=== PATIENT | female | born 1930 | race Caucasian/White ===

== ENCOUNTER 2018-06-25 12:33 | Observation (INO) ==
--- NOTE | 2018-06-25 13:13 | Emergency Department Note ---
Disposition Clinical Impression: Atrial fibrillation Qualifiers: Atrial fibrillation type: paroxysmal Qualified Code(s): I48.0 - Paroxysmal atrial fibrillation Disposition: Admitted As Inpatient Condition: Good Arrhythmia/Palpitations HPI - General Chief Complaint: ED Arrhythmia/Palpitations Stated Complaint: irregular heart rate, a fib Source: patient Mode of arrival: private vehicle Limitations: no limitations Nursing Notes Reviewed: Yes Vital Signs Reviewed: Yes - History of Present Illness HPI Narrative: Patient presents to the ED complaining of some chest discomfort and palpitations. She describes a mild pressure on the left side of her chest as well as feeling like her heart was both pounding and racing. Her heart rate was checked at home by her caregiver and was ranging from the 120s to 140s prior to coming to the ED. Patient has a known history of A. fib that is paroxysmal. She was last admitted for A. fib approximately a year ago. She wears oxygen at home at 4 L. She has no other cardiac history of CAD or [place]. No history of any thyroid problems. She has received all of her routine medications today. She sees cardiology at [place]. She is on metoprolol for her heart rate and amlodipine for her blood pressure. No other antiarrhythmics. No recent change in medications. - Related Data Home Medications Medication Instructions Recorded Confirmed Aspirin [Adult Low Dose Aspirin EC] 81 mg PO DAILY 01/14/16 06/25/18 Calcium Carbonate/Vitamin D3 1 tab PO BID 01/14/16 06/25/18 [Calcium 500 + D Tablet] Cholecalciferol (Vitamin D3) 1,000 unit PO DAILY 01/14/16 06/25/18 [Vitamin D] Galantamine HBr [Razadyne ER] 24 mg PO DAILY 01/14/16 06/25/18 Krill/Om-3/Dha/Epa/Phospho/Ast 2 cap PO DAILY 01/14/16 06/25/18 [Krill Oil 1,000 mg Softgel] Metoprolol [Lopressor] 25 mg PO BID 01/14/16 06/25/18 Multivitamin [Multi-Day Vitamins] 1 tab PO DAILY 01/14/16 06/25/18 Tiotropium [Spiriva] 1 cap IH DAILY 01/14/16 06/25/18 Vitamin E Acid Succinate [Vitamin 200 unit PO DAILY 01/14/16 06/25/18 E] amLODIPine [Norvasc] 5 mg PO DAILY 01/14/16 06/25/18 Budesonide [Pulmicort] 0.5 mg IH BID 10/04/16 06/25/18 Ipratropium/Albuterol Neb [Duoneb] 3 ml IH Q6HR PRN 12/18/16 06/25/18 Oxygen 3 l .ROUTE AD 12/18/16 06/25/18 Potassium Chloride [Klor-Con 10] 10 meq PO DAILY 12/18/16 06/25/18 Arformoterol Tartrate [Brovana] 15 mcg IH 01/08/17 01/08/17 Previous Rx's Medication Instructions Recorded Furosemide [Lasix] 20 mg PO DAILY #14 tablet 11/12/16 Meloxicam 7.5 mg PO DAILY #7 tablet 06/05/17 Tramadol HCl [Ultram] 50 mg PO QID PRN #14 tab 06/05/17 Allergies Allergy/AdvReac Type Severity Reaction Status Date / Time No Known Allergies Allergy Verified 06/25/18 12:34 Constitutional: Denies: fever, chills, weakness, weight change Eyes: Denies: eye pain, eye discharge, vision change ENT ED: Denies: ear pain, throat pain, dental pain, hearing loss, epistaxis, congestion, dysphagia Cardiovascular: Reports: as per HPI, chest pain, palpitations, dyspnea on exertion. Denies: edema, syncope Respiratory: Denies: cough, dyspnea, wheezes, hemoptysis, stridor Gastrointestinal: Denies: abdominal pain, nausea, vomiting, diarrhea, constipation, hematemesis, melena, hematochezia Genitourinary: Denies: dysuria, frequency, hematuria, discharge Musculoskeletal: Denies: back pain, neck pain, arthralgia, myalgia Integumentary: Denies: rash, abrasion, lesions Neurological: Denies: headache, weakness, numbness, paresthesias, confusion, abnormal gait, vertigo Psychiatric: Denies: anxiety, depression, suicidal thoughts, homicidal thoughts , auditory hallucinations, visual hallucinations Endocrine: Denies: fatigue Hematological/Lymphatic: Denies: easy bleeding, easy bruising Allergic/Immunologic: Denies: facial swelling, urticaria Past Medical History - Past Medical History Medical history: Reports: arthritis, COPD, other Surgical history: Reports: appendectomy, cholecystectomy, hysterectomy, other Psychiatric history: Reports: no psych history - Social History Smoking Status: Former smoker Smokeless Tobacco Status: No Alcohol use: Reports: none Drug use: Reports: none Physical Exam - General Limitations: no limitations General appearance: alert, in no apparent distress - Head Head exam: atraumatic - Eye Eye exam: Present: normal appearance, PERRL, EOMI - ENT ENT exam: normal exam, normal oropharynx, mucous membranes moist - Neck Neck exam: Present: normal inspection, full ROM, trachea midline - Chest Chest inspection: Present: normal inspection, symmetric chest wall rise - Respiratory Respiratory exam: Present: normal lung sounds bilaterally - Cardiovascular Cardiovascular exam: Present: irregular rhythm, normal heart sounds - Abdominal Exam Abdominal exam: Present: soft, Non-Tender. Absent: tenderness, distention, guarding, rebound, rigidity - Extremities Exam Extremities exam: Present: normal inspection, full ROM, pedal edema (trace). Absent: tenderness - Back Exam Back exam: Present: normal inspection, full ROM. Absent: tenderness - Neurological Exam Neurological exam: Present: alert, oriented X3 - Psychiatric Psychiatric exam: Present: normal affect, normal mood - Skin Skin exam: Present: warm, dry, intact, normal color Course Course Narrative: Patient presents to the ED with complaint of palpitations and some chest discomfort. On arrival EKG shows A. fib with RVR with heart rate in the upper 90s to low 100s. Blood pressure is on the lower side of normal. Patient appears clinically dry. Will give fluid bolus. If heart rate remains elevated and in A. fib we will consider antiarrhythmics. Will check laboratory studies as well. - Reevaluation(s) Reevaluation #1: Laboratory studies including TSH and troponin are normal. Blood pressure improved with IV fluids and heart rate decreased slightly but remains above 100. Will continue gentle IV fluids and try dose of Cardizem. Reevaluation #2: Height has improved with Cardizem and lingers around the 100 josiah. Discussed with patient, caregiver and family that are now at bedside given the slowing of patient's rate with normal workup she can be discharged home with close outpatient follow-up with her hydraulic rockbreaker operator. Her son expressed wariness about her going home given that she lives alone and does not have continuous around- the-clock care. He and the caregiver are discussing home arrangements further at this time. Reevaluation #3: Patient's baseline heart rate remains right at 100 with occasional increase into the low 100s. Patient's son is very concerned about her potentially being discharged home with him being responsible for monitoring her overnight and scheduling follow-up. Discussed the option of having the patient admitted overnight for continued monitoring, hydration and additional medications as needed if heart rate increases. Patient's son wishes to discuss the situation further with other family members as he is unsure whether he is more comfortable with her being admitted or discharged and also expresses concern about whether patient's hospital stay will be covered by insurance. Additional Reevaluation(s): After numerous conversations with the patient's caregiver and son he is more comfortable with the patient being admitted to be continued to be monitored. Patient's heart rate has began to creep back up into the low 100s on a more persistent basis despite continued IV fluids. Will contact the hospitalist. Patient was accepted by Dr. Black. Heart rate has now persistently remained in the low 100s. Will start a low dose Cardizem drip. Vital Signs Temperature 97.8 F 06/25/18 12:36 Pulse Rate 97 06/25/18 12:36 Respiratory Rate 18 06/25/18 12:36 Blood Pressure 107/65 06/25/18 12:36 O2 Sat by Pulse Oximetry 98 06/25/18 12:36 Temperature 97.6 F 06/26/18 04:21 Pulse Rate 109 06/26/18 04:21 Respiratory Rate 17 06/26/18 04:21 Blood Pressure 109/70 06/26/18 04:21 O2 Sat by Pulse Oximetry 90 06/26/18 04:21 Oxygen Delivery Oxygen Delivery Nasal Cannula Arrhythmia/Palpitations - Differential Diagnosis Differential Diagnosis: Likely: palpitations, artial arrhythmia, metabolic/ electrolyte disturbance - Medical Records Medical records reviewed: Yes I reviewed the patient's medical records. - Lab Data Lab results reviewed: Yes I reviewed the patient's lab results. Result diagrams: 06/25/18 13:37 06/25/18 13:37 Lab Results 06/25/18 06/25/18 06/25/18 Range/Units 13:37 13:37 13:37 WBC 5.9 (4.3-11.1) K/mcL RBC 3.86 (3.82-4.97) M/mcL Hgb 12.2 (11.5-15.4) g/dL Hct 37.7 (35.3-44.9) % MCV 97.7 (83.0-100.0) fL MCH 31.6 (28.0-33.3) pg MCHC 32.4 (31.6-35.5) g/dL RDW 13.8 (11.5-14.5) % Plt Count 191 (140-400) K/mcL MPV 10.0 (9.4-12.4) fL Immature Gran % 0.5 (0-4) % Seg Neutrophils % 74.4 % Lymphocytes % 5.6 % Monocytes % 14.9 % Eosinophils % 4.1 % Basophils % 0.5 % Neutrophils # 4.4 (1.6-8.9) K/mcL Lymphocytes # 0.3 L (0.6-4.6) K/mcL Monocytes # 0.9 (0.0-1.3) K/mcL Eosinophils # 0.2 (0.0-0.6) K/mcL Basophils # 0.0 (0.0-0.2) K/mcL PT 11.1 (9.4-12.1) Seconds INR 1.0 APTT 29.5 (26.0-36.0) Seconds Sodium 136 (136-145) mEq/L Potassium 4.8 (3.5-5.1) mEq/L Chloride 103 (98-107) mEq/L Carbon Dioxide 29 (23-29) mEq/L BUN 22 (8-23) mg/dL Creatinine 0.72 (0.60-1.20) mg/dL Est GFR ( Amer) > 60 (> 60) Est GFR (Non-Af Amer) > 60 (> 60) BUN/Creatinine Ratio 31 H (6-26) Glucose 84 (70-105) mg/dL Calculated Osmolality 285 (280-300) Calcium 10.0 (8.6-10.3) mg/dL Troponin I < 0.03 (< 0.04) ng/mL TSH 0.705 (0.340-5.600) mcIU/mL - Radiology Data Radiology results reviewed: Yes I reviewed the patient's radiology results. ITS Impressions Chest X-Ray 06/25/18 13:14 IMPRESSION: 1. Mild reticular opacities in the left lung which may represent atypical infection versus asymmetric edema. 2. COPD. 3. Prominence of the right hilar structures is likely related to patient rotation. D/ / 06/25/2018 14:10:29 Esthela Mccullough MD / Sade Ayala Interpreting Provider: Esthela Mccullough MD - EKG Data EKG attestation: Yes I reviewed and interpreted this EKG. Rate: tachycardia Rhythm: A.Fib (rate of 122) [place]/QRS: normal Interpretation: other (A-fib with RVR)
[2018-06-25] MEDS ORDERED: 0.9 % Sodium Chloride 500 ML IVC ONE (13:15)
[2018-06-25 13:50] LABS: Basophils % 0.5 %; Eosinophils # 0.2 K/mcL (0.0-0.6); Eosinophils % 4.1 %; Hematocrit 37.7 % (35.3-44.9); Hemoglobin 12.2 g/dL (11.5-15.4); Immature Granulocytes % 0.5 % (0-4); Lymphocytes # 0.3 K/mcL (0.6-4.6); Lymphocytes % 5.6 %; Mean Corpuscular HGB Conc 32.4 g/dL (31.6-35.5); Mean Corpuscular Hemoglobin 31.6 pg (28.0-33.3); Mean Corpuscular Volume 97.7 fL (83.0-100.0); Monocytes # 0.9 K/mcL (0.0-1.3); Monocytes % 14.9 %; Neutrophils # 4.4 K/mcL (1.6-8.9); Platelet Count 191 K/mcL (140-400); Red Blood Count 3.86 M/mcL (3.82-4.97); Red Cell Distribution Width 13.8 % (11.5-14.5); Segmented Neutrophils % 74.4 %
[2018-06-25 13:59] LABS: Prothrombin Time 11.1 Seconds (9.4-12.1)
[2018-06-25 14:02] LABS: Activated Partial Thrombo Time 29.5 Seconds (26.0-36.0)
[2018-06-25 14:06] LABS: BUN/Creatinine Ratio 31 (6-26); Blood Urea Nitrogen 22 mg/dL (8-23); Carbon Dioxide 29 mEq/L (23-29); Chloride 103 mEq/L (98-107); Glucose 84 mg/dL (70-105); Osmolality,Calculated 285 (280-300); Potassium 4.8 mEq/L (3.5-5.1); Sodium 136 mEq/L (136-145); eGFR For Non-African Americans > 60 (> 60)
[2018-06-25 14:10] LABS: Troponin I < 0.03 ng/mL (< 0.04)
[2018-06-25 14:24] LABS: Thyroid Stimulating Hormone 0.705 mcIU/mL (0.340-5.600)
[2018-06-25] MEDS ORDERED: 0.9 % Sodium Chloride 1,000 ML IVC SCH ×2 (17:00→21:04)
[2018-06-25] MEDS ORDERED: Naloxone 0.4 MG/ML INJ IVP PRN ×2 (18:12→21:04)
[2018-06-25] MEDS ORDERED: NON-FORMULARY MEDICATION 1 EACH EACH (Oxygen [Oxygen] 3 L) SCH (21:04)
[2018-06-25] MEDS ORDERED: traMADol 50 MG TABLET PO PRN (21:04)
[2018-06-25] MEDS ORDERED: Ipratropium/Albuterol Neb 3 ML IH PRN (22:00)
[2018-06-25] MEDS: Albuterol 2.5 MG/3 ML NEBULIZER IH SCH (23:10)
[2018-06-25] MEDS: Budesonide Neb 0.5 MG/2 ML IH SCH (23:20)
[2018-06-26] MEDS ORDERED: ALPRAZolam 0.5 MG TABLET PO PRN (02:48)
[2018-06-26] MEDS ORDERED: Tiotropium 18 MCG inhalation IH SCH (09:00)
[2018-06-26] MEDS ORDERED: GALANTAMINE HBR 24 MG PO SCH (09:00)
[2018-06-26] MEDS ORDERED: Aspirin Enteric Coated 81 MG Tablet PO SCH (09:00)
[2018-06-26] MEDS ORDERED: Furosemide 20 MG TABLET PO SCH (09:00)
[2018-06-26] MEDS ORDERED: Cholecalciferol (D-3) 1,000 UNIT TABLET PO SCH (09:00)
[2018-06-26] MEDS ORDERED: amLODIPine 5 MG TABLET PO SCH (09:00)
[2018-06-26] MEDS ORDERED: Multivit/Ca/Min/Fe/FA 1 TAB TABLET PO SCH (09:00)
[2018-06-26] MEDS ORDERED: KRILL OIL 1000 MG PO SCH (09:00)
[2018-06-26] MEDS: Albuterol 2.5 MG/3 ML NEBULIZER IH SCH (10:30)
[2018-06-26] MEDS: Budesonide Neb 0.5 MG/2 ML IH SCH (10:30)
[2018-06-26 12:15] VITALS: BP 115/62
--- NOTE | 2018-06-26 12:15 | Internal Med History&Physical ---
Date of Encounter: 06/26/18 Time of Encounter: 11:20 Assessment and Plan (1) Atrial fibrillation Current visit: Yes Status: Chronic RVR now resolved. Will discontinue Cardizem drip and give her Toprol-XL. Patient/family do not know why she is not on oral anticoagulation. Further discussion with head pumper recommended. Further medication adjustment can be made by her PCP and/or head pumper. Qualifiers: Atrial fibrillation type: paroxysmal Qualified Code(s): I48.0 - Paroxysmal atrial fibrillation (2) Hypertension Current visit: Yes Status: Chronic Changed to Toprol-XL 100 mg daily and discontinue amlodipine Qualifiers: Hypertension type: essential hypertension Qualified Code(s): I10 - Essential (primary) hypertension Internal Medicine - H&P: HPI Chief complaint: Rapid heart rate Admitted From: Emergency Dept Plans for Post Hospital Care: Home History of present illness: Ms. Lang is a 87 year old female who came to emergency room after home health personnel found her to have rapid heart rate ~ 140 at home. She was asymptomatic. She was evaluated in emergency room and found to have AF with RVR. She was placed on Cardizem drip and admitted to [facility] floor for ongoing care needs. She has a long history of atrial fibrillation that sounds to be paroxysmal from information obtained from patient's son. She was on Coumadin but has been off it for approximately 3 years. She now uses aspirin 81 mg daily. She has history of hypertension but denies TN heart failure angina DVT or pulmonary embolus. Echocardiogram 12/04/2016 showed LVEF of 60%. There was reported biatrial enlargement without measurements recorded. She feels back to her baseline now and feels stable to be discharged home. Past Med Surg Social Fam HX - Past Medical History Medical history: arthritis, COPD, other Additional medical history: DJD. HIP PAIN. LIPOSARCOMA OF THE RETROPERITONEUM. ONYCHOMYCOSIS. L THUMB PROXIMAL PHALANX LONG FINGER FX, MINIMAL DISPLACEMENT. LEFT INDEX FINGER PROXIMAL PHALANX FX, NONDISPLACED. OA. H/O COLONIC POLYPS. OSTEOPENIA. FORMER SMOKER, QUIT . LEUKOPENIA. MOLE. H/O DIVERTICULOSIS. REACTIVE AIRWAY DISEASE. HEMORRHOIDS. OVARIAN CANCER. SCOLIOSIS. PAROXSYMAL AFIB. LUNG NODULE. PULMONARY HTN Psychiatric history: no psych history - Past Surgical History Surgical History: appendectomy, cholecystectomy, hysterectomy, other Additional surgical history: 12/18/16 EGD/COLONOSCOPY @[facility] [place]. LEFT FOOT - Social History Smoking Status: Former smoker Smokeless Tobacco Status: No Alcohol use: none Drug use: none Internal Medicine - H&P: Meds Aspirin [Adult Low Dose Aspirin EC] 81 mg PO DAILY 01/14/16 [History] Calcium Carbonate/Vitamin D3 [Calcium 500 + D Tablet] 1 tab PO BID 01/14/16 [ History] Cholecalciferol (Vitamin D3) [Vitamin D] 1,000 unit PO DAILY 01/14/16 [History] Galantamine HBr [Razadyne ER] 24 mg PO DAILY 01/14/16 [History] Krill/Om-3/Dha/Epa/Phospho/Ast [Krill Oil 1,000 mg Softgel] 2 cap PO DAILY 01/13 [History] Metoprolol [Lopressor] 25 mg PO BID 01/14/16 [History] Multivitamin [Multi-Day Vitamins] 1 tab PO DAILY 01/14/16 [History] Tiotropium [Spiriva] 1 cap IH DAILY 01/14/16 [History] Vitamin E Acid Succinate [Vitamin E] 200 unit PO DAILY 01/14/16 [History] amLODIPine [Norvasc] 5 mg PO DAILY 01/14/16 [History] Budesonide [Pulmicort] 0.5 mg IH BID 10/04/16 [History] Furosemide [Lasix] 20 mg PO DAILY #14 tablet 11/12/16 [Rx] Ipratropium/Albuterol Neb [Duoneb] 3 ml IH Q6HR PRN 12/18/16 [History] Oxygen 3 l .ROUTE AD 12/18/16 [History] Potassium Chloride [Klor-Con 10] 10 meq PO DAILY 12/18/16 [History] Arformoterol Tartrate [Brovana] 15 mcg IH 01/08/17 [History] Meloxicam 7.5 mg PO DAILY #7 tablet 06/05/17 [Rx] Tramadol HCl [Ultram] 50 mg PO QID PRN #14 tab 06/05/17 [Rx] 3 Allergy/AdvReac Type Severity Reaction Status Date / Time No Known Allergies Allergy Verified 06/25/18 12:34 All Systems PM: A 10-system review of systems was performed and is negative for pertinent findings except as documented above in the HPI. Review of systems: Gen.: Her weight has been stable the past few months Cardiovascular: As per history of present illness Respiratory: She smoked from approximately age [age] up to 2-1/2 packs per day. She had PFTs which showed FVC 87% predicted. FEV1 52% predicted, FEV1/FVC 44% , MVV 38% predicted, and DLCO (uncorrected) 25% predicted. The RV was elevated 133% predicted. There was insignificant improvement postbronchodilator. She was diagnosed with COPD and wears oxygen 24/7 at home. GI: She denies disorders of her liver gallbladder or exocrine pancreas : She denies hematuria dysuria or kidney stones Neurologic: She has been diagnosed with normal pressure hydrocephalus. She has cognitive impairment and takes galantamine. No history of large disposition strokes or seizures. Endocrine: She denies diabetes thyroid disease or hyperlipidemia Hematology/oncology: She denies blood disorders cancers or anemia Psychiatric: She denies anxiety depression or other mental health issues [place] skeletal: She has DJD and history of gout. She denies other bone joint or muscle disorders. - Constitutional Vitals: Temp Pulse Resp BP Pulse Ox 98 F 68 14 106/68 96 06/26/18 07:18 06/26/18 07:18 06/26/18 10:30 06/26/18 07:18 06/26/18 11:15 Exam: Gen.: She is well-developed well-nourished female who appears in no acute distress at present time. HEENT: Head is atraumatic and normal cephalic. Eyes: EOMI. There is no scleral icterus. Mouth: Mucosa is moist. Neck: Supple and nontender. There is no thyromegaly or adenopathy noted. Heart: Irregularly irregular with rate approximately 80/m. No murmurs or gallops are heard. Lungs: No wheezes or crackles are heard. Abdomen: Soft and nontender. No masses or guarding are noted. Extremities: There is no cyanosis edema or clubbing noted. Dorsalis pedis and posterior tibial pulses are trace to 1+ palpable bilaterally. She has DJD changes of her hands and feet. She has some edema in her right forearm where she states an IV was previously placed. Neurologic: Mental status: She is talkative and generally appropriate in conversation. She does not remember some details of her history. Cranial nerves: Smile is symmetric. Forehead wrinkles bilaterally. Tongue protrudes midline. EOMI. Motor: There is no pronator drift. Cerebellar: Finger to nose is intact bilaterally. Skin: Warm and dry Internal Med - H&P Results - Labs CBC & Chem 7: 06/25/18 13:37 06/25/18 13:37 - VTE Reasons for not Prescribing Prophylaxis: Treatment not Indicated - Low risk for VTE
[2018-06-26] MEDS ORDERED: Metoprolol XL (24 HR) Succ 50 MG TAB.ER.24H PO SCH (12:30)
--- NOTE | 2018-06-26 12:30 | Discharge Summary ---
Date of Encounter: 06/26/18 Time of Encounter: 11:20 - Discharge Diagnosis (1) Atrial fibrillation Priority: Primary Status: Chronic Qualifiers: Atrial fibrillation type: paroxysmal Qualified Code(s): I48.0 - Paroxysmal atrial fibrillation (2) Hypertension Priority: Secondary Status: Chronic Qualifiers: Hypertension type: essential hypertension Qualified Code(s): I10 - Essential (primary) hypertension Hospital course: Ms. Lang is a 87 year old female who came to emergency room after home health personnel found her to have rapid heart rate ~ 140 at home. She was asymptomatic. She was evaluated in emergency room and found to have AF with RVR. She was placed on Cardizem drip and admitted to [facility] for ongoing care needs. Initial orders were written by the emergency room physician. I saw her on June 26 and performed a history physical and discharge. She was started on Cardizem drip in emergency room. Her heart rate returned to satisfactory range quickly. When I saw her I discontinued the Cardizem drip. She was given metoprolol XL and will transition from Lopressor to Toprol with discontinuation of amlodipine. I told patient and her son there should be discussion with cardiology about consideration for anticoagulation therapy for paroxysmal AF. There were no new problems and in the afternoon of June 26 I felt she was stable for discharge home. She will follow with her PCP within 1 week. - Time Spent with Patient Total time spent providing and/or coordinating discharge services: - Discharge Medications Prescriptions: Metoprolol Succinate 100 mg PO DAILY #30 tab.er.24h Home Medications: Aspirin [Adult Low Dose Aspirin EC] 81 mg PO DAILY 01/14/16 [History] Calcium Carbonate/Vitamin D3 [Calcium 500-Vit D3 400 Tablet] 1 tab PO BID [History] Cholecalciferol (Vitamin D3) [Vitamin D3] 1,000 unit PO DAILY 01/14/16 [History] Galantamine HBr [Razadyne ER] 24 mg PO DAILY 01/14/16 [History] Krill/Om-3/Dha/Epa/Phospho/Ast [Krill Oil 1,000 mg Softgel] 2 cap PO DAILY 01/13 [History] Multivitamin [Multi-Day Vitamins] 1 tab PO DAILY 01/14/16 [History] Tiotropium [Spiriva] 1 cap IH DAILY 01/14/16 [History] Vitamin E Acid Succinate [Vitamin E] 200 unit PO DAILY 01/14/16 [History] Budesonide [Pulmicort] 0.5 mg IH BID 10/04/16 [History] Furosemide [Lasix] 20 mg PO DAILY #14 tablet 11/12/16 [Rx] Ipratropium/Albuterol Neb [Duoneb] 3 ml IH Q6HR PRN 12/18/16 [History] Oxygen 3 l .ROUTE AD 12/18/16 [History] Potassium Chloride [Klor-Con 10] 10 meq PO DAILY 12/18/16 [History] Arformoterol Tartrate [Brovana] 15 mcg IH 01/08/17 [History] Meloxicam 7.5 mg PO DAILY #7 tablet 06/05/17 [Rx] Tramadol HCl [Ultram] 50 mg PO QID PRN #14 tab 06/05/17 [Rx] Metoprolol Succinate 100 mg PO DAILY #30 tab.er.24h 06/26/18 [Rx] Allergies/Adverse Reactions: 3 Allergy/AdvReac Type Severity Reaction Status Date / Time No Known Allergies Allergy Verified 06/25/18 12:34 Date of admission: 06/25/18 19:59 Primary care physician: Viktor Barkley DO Consults: 06/25/18 22:45 Consult to Drainlayer [CONS] Routine Reason for SW Consult: Living will power of title attorney. - Constitutional Vitals: Temp Pulse Resp BP Pulse Ox 98.1 F 105 20 115/62 90 06/26/18 12:00 06/26/18 12:00 06/26/18 12:00 06/26/18 12:00 06/26/18 12:00 - Patient Status Disposition: Home, Self-Care Condition: Good - Discharge Instructions Follow Up With: Viktor Barkley DO [Primary Care Provider] - 1 week - Diet and Activity Activity: resume usual activities as tolerated Diet: advance to your usual diet - VTE Reasons for not Prescribing Prophylaxis: Treatment not Indicated - Low risk for VTE
--- NOTE | 2018-06-29 12:29 | Electrocardiograph Report ---
[address] [address] Test Date: 2018-06-25 Pat Name: Giulia Lang Department: [id number] Room: [facility] Gender: F Appraiser Personal Property: [id number] Requested By: Rylee Fields Order Number: [id number] Reading MD: Jatin Hawkins Measurements Intervals [place] Rate: 122 P: ND: 0 QRS: 71 QRSD: 85 T: 67 QT: 277 QTc: 350 Interpretive Statements ATRIAL FIBRILLATION WITH RAPID VENTRICULAR RESPONSE ABNORMAL RHYTHM ECG Electronically Signed On 06-29-2018 12:28:02 EDT by Jatin Hawkins
== END 2018-06-26 13:31 | disposition home or self-care (01) ==
LOC: INPPIK 12:33 → EMEROOPIK 12:33 → INPPIK 20:36
PROVIDERS: ADMIT Internal Medicine; ATTEND Internal Medicine